=== PATIENT | female | born 1990 | race African-American/Black ===

== ENCOUNTER 2020-07-16 16:02 | Emergency (ER) | payer OTHER ==
[~2020-07-16] VITALS: Ht 165.1 cm; Wt 95.3 kg
[2020-07-16] MEDS ORDERED: NAPROSYN500 MG PO (18:47)
[2020-07-16 18:51] VITALS: BP 137/91
== END 2020-07-16 19:25 | disposition home or self-care (01) ==
LOC: ER 16:02
DX: S16.1XXA Strain of muscle, fascia and tendon at neck level, initial encounter (principal); S60.222A Contusion of left hand, initial encounter; S29.9XXA Unspecified injury of thorax, initial encounter; M54.5 Low back pain; J45.909 Unspecified asthma, uncomplicated; V49.88XA Car occupant (driver) (passenger) injured in other specified transport accidents, initial encounter; Y93.89 Activity, other specified; Y92.413 State road as the place of occurrence of the external cause; Y99.9 Unspecified external cause status